=== PATIENT | male | born 1975 | race American Indian/Alaskan Native ===

== ENCOUNTER 2017-08-22 01:20 | Emergency (ER) | payer SELFPAY ==
[2017-08-22 01:38] VITALS: RESP 16
[2017-08-22] MEDS ORDERED: Sodium Chloride 0.9% 1,000 ML IV STA (02:18)
[2017-08-22] MEDS ORDERED: Iohexol 240 (50 ml) PO ONE (02:34)
--- NOTE | 2017-08-22 03:04 | ED PDOC ---
"HPI: Abdomen Time Seen by Provider: 08/22/17 01:28 Chief Complaint (Nursing): Abdominal Pain Chief Complaint (Provider): Abdominal Pain History Per: Patient History/Exam Limitations: no limitations Onset/Duration Of Symptoms: Hrs (10) Location Of Pain/Discomfort: LLQ Associated Symptoms: Nausea, Vomiting. denies: Fever, Chills Additional Complaint(s): 42 years old male with history of HIV (CD 4>900), viral load undetectable, asthma, diverticulosis and diverticulitis presents to the ED with complaints of left lower quadrant onset 5 pm yesterday. Patient reports experiencing nausea and 2 episodes of non bloody, non bilious vomiting and normal stools. He denies any fever, chills, chest pain or shortness of breath. PMD: non provided Past Medical History Reviewed: Historical Data, Nursing Documentation, Vital Signs Vital Signs: Last Vital Signs Temp 98 F 08/22/17 04:49 Pulse 81 08/22/17 04:49 Resp 16 08/22/17 04:49 BP 119/71 08/22/17 04:49 Pulse Ox 100 08/22/17 04:49 - Medical History PMH: Asthma, Diverticulitis (diverticulosis), HIV - Surgical History Surgical History: No Surg Hx - Family History Family History: States: Unknown Family Hx - Social History Current smoker - smoking cessation education provided: No Alcohol: Social Drugs: Denies - Home Medications Home Medications: Ambulatory Orders Medication Instructions Recorded Dicyclomine [Bentyl] 20 mg PO BID #30 tab 08/22/17 - Allergies Allergies/Adverse Reactions: Allergies Allergy/AdvReac Type Severity Reaction Status Date / Time iodine Allergy RASH Verified 08/22/17 01:39 metronidazole [From Flagyl] Allergy RASH Verified 08/22/17 01:39 NSAIDS (Non-Steroidal Allergy RASH Verified 08/22/17 01:39 Anti-Inflamma Sulfa (Sulfonamide Allergy RASH Verified 08/22/17 01:39 Antibiotics) Review of Systems ROS Statement: Except As Marked, All Systems Reviewed And Found Negative Constitutional: Negative for: Fever, Chills Cardiovascular: Negative for: Chest Pain Respiratory: Negative for: Cough, Shortness of Breath Gastrointestinal: Positive for: Nausea, Vomiting (non bloody, non bilious), Abdominal Pain (LLQ). Negative for: Melena Physical Exam - Reviewed Nursing Documentation Reviewed: Yes Vital Signs Reviewed: Yes - Physical Exam Appears: Positive for: Non-toxic, No Acute Distress (Obese) Skin: Positive for: Normal Color, Warm, DRY Eye Exam: Positive for: EOMI, Normal appearance, PERRL ENT: Positive for: Normal ENT Inspection Neck: Positive for: Normal, Painless ROM Cardiovascular/Chest: Positive for: Regular Rate, Rhythm Respiratory: Positive for: CNT, Normal Breath Sounds Gastrointestinal/Abdominal: Positive for: Bowel Sounds, Soft, Tenderness (LLQ). 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 Negative for: Motor/Sensory Deficits - Laboratory Results Result Diagrams: 08/22/17 03:42 08/22/17 03:42 - ECG O2 Sat by Pulse Oximetry: 98 (RA) Pulse Ox Interpretation: Normal Medical Decision Making Medical Decision Making: A/P: Hx with HIV (CD 4>900), viral load undetectable, asthma, diverticulosis and diverticulitis presents with abdominal pain and vomiting --Very comfortable, normal vitals --Given history likely diverticulitis vs colitis --Will order CT and blood work --Give fluids, pain medications and reevaluation 605AM EXAM: CT Abdomen and Pelvis With Intravenous Contrast CLINICAL HISTORY: 42 years old, male; Pain; Abdominal pain; Localized; Left; Additional info: Llq pain, HX of hiv and diverticulitis TECHNIQUE: Axial computed tomography images of the abdomen and pelvis with intravenous contrast. All CT scans at this facility use at least one of these dose optimization techniques: automated exposure control; mA and/or kV adjustment per patient size (includes targeted exams where dose is matched to clinical indication); or iterative reconstruction. CONTRAST: 0 mL of 0 was administered intravenously. COMPARISON: No relevant prior studies available. FINDINGS: Lung bases: Unremarkable. No mass. No consolidation. ABDOMEN: Liver: Unremarkable. No mass. Gallbladder and bile ducts: Unremarkable. No calcified stones. No ductal dilation. Pancreas: Unremarkable. No mass. No ductal dilation. Spleen: Unremarkable. No splenomegaly. Adrenals: Unremarkable. No mass. Kidneys and ureters: Nonobstructing stones in each kidney. No stones in either ureter and no hydronephrosis. Stomach and bowel: Scattered diverticula in the colon. No diverticulitis. No obstruction. PELVIS: Appendix: Normal appendix. Bladder: Unremarkable. No mass. Reproductive: Unremarkable as visualized. ABDOMEN and PELVIS: Intraperitoneal space: Unremarkable. No free air. No significant fluid collection. Bones/joints: No acute fracture. No dislocation. Soft tissues: Bilateral inguinal hernias containing fat. Umbilical hernia containing fat. Vasculature: Unremarkable. No abdominal aortic aneurysm. Lymph nodes: Unremarkable. No enlarged lymph nodes. ISRA GILLIAM | Preliminary Radiology Report DRAWER MAKER (QA) DISCREPANCY? If there is a discrepancy between the preliminary and final interpretation, please notify [facility] via [email or web address]. If you do not have access to our QA portal, call our QA team at [phone] CONFIDENTIALITY STATEMENT This report is intended only for the use of the referring physician, and only in accordance with law, If you received this in error, call [phone] Page 2 of 2 IMPRESSION: Scattered diverticula in the colon. No diverticulitis. Thank you for allowing us to participate in the care of your patient. Dictated and Authenticated by: Jj Chandra MD 08/22/2017 6:03 AM Eastern Time ([place] & [place]) Patient resting comfortably, vital signs have normalized. Advised patient to try diet modification and followup with [facility]. Patient well appearing, ambulatory, tolerating PO upon discharge. Scribe Attestation: Documented by Maryjane Chambers, acting as a scribe for Cristi Anaya MD. Provider Scribe Attestation: All medical record entries made by the Scribe were at my direction and personally dictated by me. I have reviewed the chart and agree that the record accurately reflects my personal performance of the history, physical exam, medical decision making, and the department course for this patient. I have also personally directed, reviewed, and agree with the discharge instructions and disposition. Disposition - Clinical Impression Clinical Impression: Diverticulosis - Disposition Referrals: Manuel Erwin [Outside] Disposition: Routine/Home Disposition Time: 06:10 Condition: IMPROVED Additional Instructions: Please followup at the [facility] as soon as possible. Prescriptions: Dicyclomine [Bentyl] 20 mg PO BID #30 tab Instructions: High Fiber Diet, Diverticulosis Forms: [facility] ([employer])"
[2017-08-22 03:45] LABS: BASO % 0.4 % (0.0-2.0); EOS % 0.8 % (0.0-4.0); HEMOGLOBIN 13.2 g/dL (12.0-18.0); LYMPH # 1.3 K/uL (1.0-4.3); LYMPH % 28.1 % (20.0-40.0); MEAN CELL VOLUME 90.3 fl (80.0-94.0); MEAN CORPUSCULAR HEMOGLOBIN 30.9 pg (27.0-31.0); MEAN CORPUSCULAR HGB CONC 34.2 g/dL (33.0-37.0); MEAN PLATELET VOLUME 7.1 fl (7.2-11.7); MONO # 0.7 K/uL (0.0-0.8); MONO % 14.8 % (0.0-10.0); NEUT # 2.6 K/uL (1.8-7.0); NEUT % 55.9 % (50.0-75.0); RBC 4.29 Mil/uL (4.40-5.90); WHITE BLOOD COUNT 4.6 K/uL (4.8-10.8)
[2017-08-22 03:59] LABS: ALB/GLOB RATIO 1.1 (1.0-2.1); ALBUMIN 3.8 g/dL (3.5-5.0); ALT/SGPT 17 U/L (21-72); AST/SGOT 28 U/L (17-59); BLOOD UREA NITROGEN 15 mg/dl (9-20); CALCIUM 8.6 mg/dL (8.4-10.2); GFR AFRICAN-AMERICAN > 60; GFR NON-AFRICAN AMERICAN > 60; LIPASE 233 U/L (23-300)
[2017-08-22 04:36] LABS: URINE BILIRUBIN NEGATIVE (NEGATIVE); URINE BLOOD MODERATE (NEGATIVE); URINE CLARITY SLIGHTY-CLOUDY (Clear); URINE COLOR YELLOW (YELLOW); URINE GLUCOSE (UA) NEG (Normal); URINE LEUKOCYTE ESTERASE NEG Leu/uL (Negative); URINE PROTEIN NEGATIVE (NEGATIVE); URINE UROBILINOGEN 0.2-1.0 mg/dL (0.2-1.0)
[2017-08-22 06:30] VITALS: BP 130/94; PULSE 74; TEMP 97.8; O2SAT 96
--- NOTE | 2017-08-22 09:18 | CT ---
PROCEDURE: CT Abdomen and Pelvis with contrast HISTORY: LLQ pain, hx of HIV And diverticulitis COMPARISON: None. TECHNIQUE: Contrast dose: None Radiation dose: Total exam DLP = 973.02 mGy-cm. This CT exam was performed using one or more of the following dose reduction techniques: Automated exposure control, adjustment of the mA and/or kV according to patient size, and/or use of iterative reconstruction technique. FINDINGS: LOWER THORAX: Unremarkable. LIVER: Unremarkable. No gross lesion or ductal dilatation. GALLBLADDER AND BILE DUCTS: Distended but otherwise unremarkable appearing. PANCREAS: Unremarkable. No gross lesion or ductal dilatation. SPLEEN: Unremarkable. ADRENALS: Unremarkable. No mass. KIDNEYS AND URETERS: Punctate intrarenal calculus identified 2.5 mm at the upper to midpole left kidney dependent portion. Nonspecific streaky perinephric changes are minimal bilaterally. No obstructive uropathy bilaterally. VASCULATURE: Unremarkable. No aortic aneurysm. BOWEL: The stomach appears unremarkable. Limited distal left colonic diverticular without acute changes. No obstruction. No gross mural thickening. APPENDIX: Normal appendix. PERITONEUM: Limited developing inguinal hernia is identified containing only fat. There is also small umbilical hernia. No free fluid. No free air. LYMPH NODES: Unremarkable. No enlarged lymph nodes. BLADDER: Unremarkable. REPRODUCTIVE: Unremarkable. BONES: No acute fracture. OTHER FINDINGS: None. IMPRESSION: 1. Limited distal left colonic diverticular without acute changes. No bowel obstruction, mesenteric edema, ascites or free intra peritoneal gas. 2. A tiny developing umbilical and bilateral inguinal hernias containing only minimal mesenteric fat. 3. Punctate nonobstructing intrarenal calculus dependent upper to midpole left kidney.
== END 2017-08-22 06:29 | disposition home or self-care (01) ==
LOC: H.ER 01:20
DX: K57.30 Diverticulosis of large intestine without perforation or abscess without bleeding (principal)
CPT/HCPCS: 74176; 80053; 81003; 83690; 85025; 87040; 96361; 96374; 96375; 96376; 99284; J2270; J2405; J7030; Q9966